=== PATIENT | female | born 1965 | race Caucasian/White ===

== ENCOUNTER 2017-02-27 20:16 | Emergency (ER) | payer OTHER ==
[2017-02-27 21:08] LABS: #Basophils 0.1 thou/uL (0.0-0.2); #Eosinphils 0.1 thou/uL (0.0-0.7); #Lymphocytes 2.6 thou/uL (1.20-3.40); #Neutrophils 6.7 thou/uL (1.40-6.50); %Basophils 0.8 % (0.0-1.0); %Lymphocytes 24.7 % (21.0-51.0); %Monocytes 9.2 % (0.0-10.0); Hematocrit 44.9 % (36.0-47.0); Mean Platelet Volume 7.2 fL (7.4-10.4); White Blood Cell (WBC) Count 10.4 thou/uL (4.8-10.8)
[2017-02-27 21:14] LABS: PTT 30.4 SEC (22.9-36.1); Prothrombin Time 13.2 SEC (12.0-14.7)
[2017-02-27 21:26] LABS: Lactic Acid - Sepsis 1.4 mmol/L (0.5-2.2)
[2017-02-27 21:30] LABS: CK (CPK) 32 U/L (29-168); Lipase 10 U/L (8-78)
[2017-02-27 21:32] LABS: ALT (SGPT) 12 U/L (8-55); AST (SGOT) 12 U/L (5-34); Acetaminophen Less than 6.0 mcg/mL (10.0-30.0); Alkaline Phosphatase 88 U/L (40-150); Anion Gap 13 mmol/L (10-20); BUN (Urea Nitrogen) 18 mg/dL (7.0-18.7); Bilirubin, Total 0.9 mg/dL (0.2-1.2); Calc. Creatinine Clearance 0 mL/min (70-130); Calcium 9.8 mg/dL (7.8-10.44); Carbon Dioxide 24 mmol/L (22-29); Chloride 106 mmol/L (98-107); Estimated GFR-MDRD 82; Globulin 2.3 g/dL (2.4-3.5); Protein, Total 6.7 g/dL (6.0-8.3); Salicylate Less than 8.0 mg/dL (15.0-30.0)
[2017-02-27 21:33] LABS: Troponin I Less than 0.010 ng/mL (< 0.028)
[2017-02-28 00:15] LABS: Amphetamine Not Detected (NotDetected); Methadone Not Detected (NotDetected); Methamphetamine Not Detected (NotDetected)
== END 2017-02-28 12:35 ==
LOC: ERS 20:16
DX: F31.9 Bipolar disorder, unspecified (principal); F17.210 Nicotine dependence, cigarettes, uncomplicated; Z79.899 Other long term (current) drug therapy
CPT/HCPCS: 36415; 36416; 80053; 80178; 80306; 80307; 81025; 82553; 83605; 83690; 84484; 84703; 85025; 85610; 85730; 93005

== ENCOUNTER 2018-04-29 17:19 | Emergency (ER) | payer OTHER | END 2018-04-29 18:02 | LOC: ERS 17:19 | DX: Z02.89 Encounter for other administrative examinations (principal); F31.9 Bipolar disorder, unspecified; F17.210 Nicotine dependence, cigarettes, uncomplicated | CPT/HCPCS: 99283 ==

== ENCOUNTER 2019-09-25 22:34 | Emergency (ER) | payer OTHER | END 2019-09-25 22:59 | LOC: ERS 22:34 | DX: Z02.89 Encounter for other administrative examinations (principal); F31.9 Bipolar disorder, unspecified; F17.210 Nicotine dependence, cigarettes, uncomplicated | CPT/HCPCS: 99283 ==

== ENCOUNTER 2020-12-01 15:00 | Emergency (ER) | payer OTHER | END 2020-12-01 15:20 | disposition short-term general hospital (02) | LOC: ERS 15:00 | DX: F10.129 Alcohol abuse with intoxication, unspecified (principal); F17.210 Nicotine dependence, cigarettes, uncomplicated ==

== ENCOUNTER 2021-08-01 21:00 | Emergency (ER) | payer OTHER | END 2021-08-01 21:17 | LOC: ERS 21:00 | DX: F10.129 Alcohol abuse with intoxication, unspecified (principal); Z02.89 Encounter for other administrative examinations; F17.210 Nicotine dependence, cigarettes, uncomplicated | CPT/HCPCS: 99284 ==

== ENCOUNTER 2023-08-13 12:43 | Outpatient (CLI) | payer OTHER | END 2023-08-13 12:44 | disposition home or self-care (01) | LOC: BICMAMMO 12:43 | PROVIDERS: ATTEND Family Medicine | DX: Z12.31 Encounter for screening mammogram for malignant neoplasm of breast (principal) | CPT/HCPCS: 77067 ==